=== PATIENT | male | born 2000 | race Two or more races ===

== ENCOUNTER 2020-03-22 06:11 | Outpatient (REF) | payer BC, SELFPAY | END 2020-03-22 06:12 | disposition home or self-care (01) | LOC: HO.LAB 06:11 | PROVIDERS: Visit Provider Internal Medicine | DX: Z20.828 Contact with and (suspected) exposure to other viral communicable diseases (principal) | CPT/HCPCS: C9803; U0003 ==

== ENCOUNTER 2020-08-30 17:19 | Emergency (ER) | payer BC, SELFPAY ==
[2020-08-30 18:23] VITALS: BP 114/53; PULSE 72; RESP 16; TEMP 37.3; O2SAT 98; BMI 23.3
--- NOTE | 2020-08-30 19:16 | ED.WOUNDLAC ---
HPI - Wound/Laceration General Chief Complaint: Wound/Laceration Stated Complaint: wound Time Seen by Provider: 08/30/20 18:33 Source: patient Mode of arrival: ambulatory Limitations: no limitations History of Present Illness HPI narrative: 19 y/o healthy male presenting with a small, superficial laceration to his right cheek when he got elbowed in the face while playing basketball this afternoon. He did not lose consciousness. No jaw or tooth pain. No headache or neck pain. No active bleeding. Laceration is about 1.5 cm. He is UTD on tetanus Onset (ago): hour(s) Location: face Place: outdoors Patient tetanus UTD: Yes Context: accidental Associated symptoms: none Treatments prior to arrival: bandage Related Data Allergies Allergy/AdvReac Type Severity Reaction Status Date / Time seafood Allergy Shortness Verified 08/30/20 18:26 of Breath Review of Systems Review of Systems: Constitutional: No Fever, No Chills Cardiovascular: No Chest Pain, No SOB Respiratory: No Cough, No Sputum Gastrointestinal: No Nausea, No Vomiting Skin: +Skin Lesions, No rash Neuro: No Weakness, No Numbness, No Dizziness, No Headache Heme/Lymph: No Bruising PMFSH Past Medical History Attestation statement: The following information was validated with the patient. Medical History No known health problems Social History Social History Advance Directives: No Advance Directives Information Provided: Yes Physical Exam Vital Signs: Vital Signs: Last Vital Signs Temp 99.2 F 08/30/20 18:23 Pulse 72 08/30/20 18:23 Resp 16 08/30/20 18:23 BP 114/53 L 08/30/20 18:23 Pulse Ox 98 08/30/20 18:23 Body Mass Index 23.3 Appearance: Alert. Oriented X3. No acute distress. HEENT: small, 1.5 cm superficial linear laceration to superior right maxilla, EOMI, no orbital tenderness or swelling. No active bleeding. CVS: Normal heart rate and rhythm. Pulses normal. Respiratory: No respiratory distress. Skin: Skin warm and dry. Normal skin color. Normal skin turgor. No rashes. Extremities: atraumatic, no edema Neuro: Oriented X 3. No motor deficit. No sensory deficit. Course Course Course Narrative: 19 y/o male prsesenting with small lac to right cheek - sutured closed. counseled on wound care. stable for d/c. Procedures Laceration Laceration 1: Site: face Side (If applicable): right Size (cm): 1.5 Description: linear Depth: simple, single layer Local Anesthetic: lidocaine 2% Amount of anesthesia used (mL): 1 Pre-repair: irrigated extensively Skin layer closed with: nylon Size (cm): other (7-0) Number of sutures: 3 Technique: simple, interrupted Critical Care Time Critical Care Time Critical Care Time: No Discharge Plan Discharge Clinical Impression: Laceration Patient Disposition: Home, Self-Care Instructions: Facial Laceration (ED) Additional Instructions: Three stitches were placed to close the wound. You will need to get them removed in 5-7 days. Do not get wet for 24 hours, after that you may briefly wash with soap and water then pat dry. Keep wound clean and covered. Use bacitracin or Neosporin on the wound two times per day - found over the counter. Use ice as needed for pain and swelling. Take Motrin and/or Tylenol as needed for pain. Follow up with your doctor as needed.
== END 2020-08-30 19:58 | disposition home or self-care (01) ==
PROVIDERS: Emergency Provider Internal Medicine
DX: S01.411A Laceration without foreign body of right cheek and temporomandibular area, initial encounter (principal); W50.0XXA Accidental hit or strike by another person, initial encounter; Y93.67 Activity, basketball; Y92.310 Basketball court as the place of occurrence of the external cause; Y99.8 Other external cause status
CPT/HCPCS: 12011; 99284

== ENCOUNTER 2020-09-05 14:38 | Emergency (ER) | payer BC, SELFPAY ==
[2020-09-05 14:41] VITALS: BP 133/63; PULSE 64; RESP 18; O2SAT 98; BMI 34.9
--- NOTE | 2020-09-05 16:11 | ED_ITS ---
HPI - Wound/Laceration General Chief Complaint: Wound/Laceration Stated Complaint: SUTURE REMOVAL Time Seen by Provider: 09/05/20 15:58 Source: patient Mode of arrival: ambulatory History of Present Illness HPI narrative: 19-year-old male with a past medical history of facial laceration s/p getting elbowed in the face presenting to the ED for suture removal. Three sutures were placed to right cheek on 08/30/2020. Denies drainage from area, fever, chills, pain Related Data Allergies Allergy/AdvReac Type Severity Reaction Status Date / Time seafood Allergy Shortness Verified 08/30/20 18:26 of Breath Review of Systems Review of Systems: Constitutional: No Fever, No Chills Gastrointestinal: No Nausea, No Vomiting Skin: + laceration Neuro: No Weakness, No Numbness, No Paresthesias Yes all other systems are reviewed and are negative [facility] Past Medical History Attestation statement: The following information was validated with the patient. Medical History No known health problems Social History Social History Advance Directives: No Advance Directives Information Provided: No Physical Exam Vital Signs: Vital Signs: Last Vital Signs Pulse 64 09/05/20 14:41 Resp 18 09/05/20 14:41 BP 133/63 09/05/20 14:41 Pulse Ox 98 09/05/20 14:41 Body Mass Index 34.9 Const: General: cooperative, healthy appearing and no acute distress Orientation/consciousness: patient oriented x3 Limitations: no limitations HENMT: Head: Yes normal to inspection Ears: hearing grossly normal bilaterally General nose exam: Normal external nose present Face and sinus: Yes normal facial exam Eyes: General: appearance normal, both eyes and all related structures EOM: EOMs intact bilaterally Neck: Neck: Yes normal visual inspection and Yes no meningeal signs Resp: Effort & Inspection: normal respiratory effort Cardio: Rate: regular rate Skin: Other: + 1.5 cm healing laceration noted to right cheek with 3 sutures intact. No surrounding cellulitis/erythema, no fluctuance or induration Rashes: no rashes Neuro: General: patient oriented x3 and no meningeal signs Gait exam (Neuro): Normal gait present Extrem: General: Yes normal to inspection Procedures Procedure Narrative Procedure Narrative: Suture removal Three sutures removed from right cheek No complications of procedure Patient tolerated well Discharge Plan Discharge Clinical Impression: Encounter for removal of sutures Patient Disposition: Home, Self-Care Instructions: Stitches Removal (ED) Additional Instructions: Apply bacitracin, Neosporin, or anti scar cream likely Mederma Keep your scar clean, and out of the sun. Wear a hat and sunscreen if you are going to be in the sun, sun will make the area scar worse If area begins to look infected, is red, there is drainage from the area or you have fever return to the ED, otherwise follow up with her doctor as needed Referrals: Physician,None [Primary Care Provider] - 2 days
== END 2020-09-05 16:23 | disposition home or self-care (01) ==
PROVIDERS: Emergency Provider Emergency Medicine
DX: Z48.02 Encounter for removal of sutures (principal); S01.411D Laceration without foreign body of right cheek and temporomandibular area, subsequent encounter; W50.0XXD Accidental hit or strike by another person, subsequent encounter
CPT/HCPCS: 99283